=== PATIENT | male | born 1950 | race Two or more races ===

== ENCOUNTER 2018-03-18 22:54 | Inpatient (IN) | payer OTHER ==
[~2018-03-18] VITALS: Ht 175.3 cm; Wt 76.9 kg
--- NOTE | 2018-03-18 23:10 | NUR ---
67 YO male bb ra from home. patient is alert and oriented, C/O SOB x 2 days. on assessment patient is noted to have rhonchi all lobes, on room air patient is 85%, placed patient on 4 LPM 02 via NC. patient ds to er bed, skin warm and dry, resp even and unlabored. patient is noted to have swollen lower extremities. awaiting orders from provider, will continue to monitor
--- NOTE | 2018-03-18 23:19 | NUR ---
18G LEFT AC IV STARTED, BLOOD SAMPLE OBTAINED AND SENT TO LAB Addendum: 03/18/18 at 2319 by SKYLER LEFT WRIST IV STARTED
[2018-03-18 23:28] LABS: BASOPHILS % (AUTO) 0.4 % (0.0-2.0); EOSINOPHILS % (AUTO) 3.7 % (0.0-6.0); HEMATOCRIT 36 % (39-51); HEMOGLOBIN 11.8 g/dL (13.5-17.5); LYMPHOCYTES # (AUTO) 1.5 /CMM (0.8-4.8); LYMPHOCYTES % (AUTO) 15.5 % (20.0-44.0); MEAN CORPUSCULAR HEMOGLOBIN 27 PG (26.0-33.0); MEAN CORPUSCULAR HGB CONC 33 g/dl (31.0-36.0); MEAN CORPUSCULAR VOLUME 82 fL (80-96); MONOCYTES # (AUTO) 0.5 /CMM (0.1-1.30); NEUTROPHILS # (AUTO) 7.2 /CMM (1.8-8.9); NEUTROPHILS % (AUTO) 75.4 % (43.0-81.0); PLATELET COUNT (AUTO) 253 /CMM (150-450); RDW COEFFICIENT OF VARIATION 16.5 (11.5-15.0); WHITE BLOOD COUNT (AUTO) 9.6 K/uL (4.3-11.0)
[2018-03-18 23:43] LABS: CALCIUM, SERUM 8.6 mg/dL (8.5-10.1); CARBON DIOXIDE 29 mmol/L (21-32); CHLORIDE 100 mmol/L (98-107); CREATININE 1.1 mg/dL (0.6-1.3); GLUCOSE 136 mg/dL (74-106); POTASSIUM 3.5 mmol/L (3.5-5.1); SODIUM SERUM 137 mmol/L (136-145); UREA NITROGEN, BLOOD 26 mg/dL (7-18)
[2018-03-18 23:48] LABS: TROPONIN I < 0.017 ng/mL (0.00-0.056)
[2018-03-19 00:01] LABS: ALANINE AMINOTRANSFERASE 26 U/L (12-78); ALBUMIN 3.1 g/dL (3.4-5.0); ALKALINE PHOSPHATASE 60 U/L (46-116); ASPARTATE AMINOTRANSFERASE 8 U/L (15-37); B-TYPE NATRIURETIC PEPTIDE 9561 PG/ML (0-125); BILIRUBIN,DIRECT 0.1 mg/dL (0.0-0.2); BILIRUBIN,TOTAL 0.4 mg/dL (0.2-1.0); TOTAL PROTEIN, SERUM 6.8 g/dL (6.4-8.2)
[2018-03-19] MEDS ORDERED: FUROSEMIDE 40 MG/4 ML VIAL ONE (00:58)
[2018-03-19] MEDS ORDERED: FUROSEMIDE 40 MG/4 ML VIAL IV ONE (01:00)
--- NOTE | 2018-03-19 01:17 | NUR ---
patient trassported to tele bed without incident
[2018-03-19 01:20] VITALS: BP 113/83
--- NOTE | 2018-03-19 01:20 | NUR ---
PUTTY MAKERBUYER TOBACCO HEAD NOTES: Patient arrived in unit via gurney. Alert, oriented x 4. On 4L supplemental oxygen, saturating 99%. SOB on exertion. IV access on right wrist g#18, intact and patent. Patient able to ambulate to the bathroom. Oriented to call light. Skin assessment done. Bilateral lower extremity swelling, elevated with pillows. Picture in chart. Safety precautions in place. Bed in low, locked position. Will continue to monitor accordingly
[2018-03-19 01:30] VITALS: BP 113/83
[2018-03-19 01:30] LABS: INR 1.01 (0.87-1.13)
[2018-03-19] MEDS ORDERED: HYDROCODONE/APAP 5/325MG 1 EACH TABLET PO PRN (02:00)
--- NOTE | 2018-03-19 02:00 | NUR ---
HOLISTIC NUTRITIONIST NOTES: awake overnight monitor in place, Sinus rhythm 99 with BBB
[2018-03-19] MEDS ORDERED: INSULIN REGULAR, HUMAN 100 UNIT/ML 3 ML VIAL SQ PRN (02:30)
[2018-03-19] MEDS ORDERED: *INSULIN REGULAR(HUMULIN R)HUM 100 UNIT/ML VIAL SQ PRN (02:30)
[2018-03-19] MEDS ORDERED: DEXTROSE 50%-WATER 50 ML DISP.SYRIN IV PRN (02:30)
--- NOTE | 2018-03-19 02:30 | NUR ---
VENDOR ANALYST NOTES: Patient complaining of pain on left foot, norco given as ordered
[2018-03-19 04:00] VITALS: BP 97/60
--- NOTE | 2018-03-19 06:53 | NUR ---
FREELANCE WEB DESIGNER CLOSING NOTES: Patient sitting up in bed, alert, oriented x 4. Breathing even and unlabored. With supplemental O2 at 4L saturating 99%. Patient remains stable. Tele monitor in place reading sinus rhythm 89 with BBB. No complaints as of this time. Safety precautions in place. Call reyna within reach. Bed in low, licked position. Will endorse almas to morning shift RN
[2018-03-19] MEDS ORDERED: BLOOD SUGAR DIAGNOSTIC 1 EACH STRIP VI SCH (07:30)
[2018-03-19 07:36] LABS: BASOPHILS % (AUTO) 0.5 % (0.0-2.0); EOSINOPHILS % (AUTO) 2.8 % (0.0-6.0); HEMATOCRIT 39 % (39-51); HEMOGLOBIN 12.5 g/dL (13.5-17.5); LYMPHOCYTES # (AUTO) 1.5 /CMM (0.8-4.8); LYMPHOCYTES % (AUTO) 16.6 % (20.0-44.0); MEAN CORPUSCULAR HEMOGLOBIN 26 PG (26.0-33.0); MEAN CORPUSCULAR HGB CONC 32 g/dl (31.0-36.0); MEAN CORPUSCULAR VOLUME 82 fL (80-96); MONOCYTES # (AUTO) 0.5 /CMM (0.1-1.30); MONOCYTES % (AUTO) 5.9 % (2.0-12.0); NEUTROPHILS # (AUTO) 6.6 /CMM (1.8-8.9); NEUTROPHILS % (AUTO) 74.2 % (43.0-81.0); PLATELET COUNT (AUTO) 248 /CMM (150-450); RDW COEFFICIENT OF VARIATION 16.5 (11.5-15.0); RED BLOOD CELL COUNT(AUTO) 4.73 MIL/uL (4.5-6.0); WHITE BLOOD COUNT (AUTO) 8.9 K/uL (4.3-11.0)
[2018-03-19 07:43] LABS: CALCIUM, SERUM 8.3 mg/dL (8.5-10.1)
--- NOTE | 2018-03-19 07:48 | NUR ---
BURLAP ROLL COVERER NOTES PATIENT RECEIVED SLEEPING INSIDE ROOM, EASILY AROUSABLE THROUGH VERBAL AND TACTILE STIMULI. BREATHING EVEN AND UNLABORED. NO SOB OR ACUTE DISTRESS NOTED. NO CHANGES IN LOC NOTED. PATIENT DENIES ANY PAIN OR DISCOMFORT AT THIS TIME. PATIENT CALM AND RELAXED. IV INTACT AND PATENT, NO SWELLING OR BLEEDING NOTED ON SITE. WILL CONTINUE TO MONITOR. BED LOCKED AND IN LOW POSITION. BILATERAL UPPER SIDE RAILS UP AND LOCKED. CALL LIGHT WITHIN EASY REACH
[2018-03-19 08:00] LABS: THYROID STIMULATING HORMONE 0.6 uIU/mL (0.358-3.74)
[2018-03-19 08:50] VITALS: BP 106/61
[2018-03-19] MEDS ORDERED: LISINOPRIL (5MG) 5 MG TABLET PO SCH (09:00)
[2018-03-19] MEDS ORDERED: FUROSEMIDE 40 MG/4 ML VIAL IV SCH (09:00)
[2018-03-19] MEDS ORDERED: POTASSIUM CHLORIDE 20 MEQ TAB.PRT.SR PO SCH (09:00)
[2018-03-19] MEDS ORDERED: ZOLPIDEM TARTRATE 5 MG TABLET PO PRN (09:00)
[2018-03-19] MEDS ORDERED: ACETAMINOPHEN 325 MG TABLET PO PRN (09:00)
[2018-03-19] MEDS ORDERED: CARVEDILOL 12.5 MG TABLET PO SCH (09:00)
--- NOTE | 2018-03-19 10:59 | NUR ---
CENTER CUSTOMER SERVICE ASSOCIATE NOTES PATIENT SEEN AND EXAMINED BY DR. BOUCHER. PATIENT VERBALIZED THAT HE WANTS TO LEAVE AND GO HOME. DR. BOUCHER EXPLAINED TO PATIENT RISKS AND BENEFITS BUT PATIENT INSISTED THAT HE WANTS TO GO HOME, VERBALIZED HE WILL SIGN AMA FORM IF NEEDED SO HE CAN GO HOME. DR. BOUCHER WITH ORDER FOR VENOUS DOPPLER TO R/O DVT, PATIENT MADE AWARE BUT VERBALIZED THAT HE DOES NOT WANT TO WAIT, VERBALIZED THAT HE IS AMBULATORY AND HE THINKS THAT THERE IS NO PROBLEM WITH HIS LEGS. DR. BOUCHER MADE AWARE. DR. BOUCHER GAVE OK FOR PATIENT TO LEAVE HOSPITAL AGAINST MEDICAL ADVICE. AMA FORMED SIGNED BY PATIENT, ALL BELONGINGS COMPLETE ON DISCHARGE, NO REPORT OF MISSING INVENTORY. IV REMOVED WITH MINIMAL BLEEDING NOTED. PRESSURE DRESSING APPLIED TO SITE. PATIENT LEFT UNIT AT 1050, AMBULATORY, ACCOMPANIED BY NURSING STAFF TO OUTSIDE OF HOSPITAL. MD AND CHARGE NURSE AWARE OF DISCHARGE
[2018-03-20] MEDS ORDERED: LISI2.5T2 PO (15:45)
[2018-03-20] MEDS ORDERED: FERR325T23 PO (15:45)
[2018-03-20] MEDS ORDERED: DIGO125T PO (15:45)
[2018-03-20] MEDS ORDERED: IPRA12.9 IH (15:45)
[2018-03-20] MEDS ORDERED: ASCO500T9 PO (15:45)
[2018-03-20] MEDS ORDERED: TAMS-12 PO (15:45)
[2018-03-20] MEDS ORDERED: CARV6.252 PO (15:45)
[2018-03-20] MEDS ORDERED: ASPI-1169 PO (15:45)
[2018-03-20] MEDS ORDERED: BUME1TAB4 PO (15:45)
[2018-03-20] MEDS ORDERED: ALBU18HF2 IH (15:45)
[2018-03-20] MEDS ORDERED: SPIR25TA6 PO (15:45)
[2018-03-20] MEDS ORDERED: LEVA0.6320 IH (15:45)
[2018-03-20] MEDS ORDERED: PRED20TA PO (15:45)
[2018-03-20] MEDS ORDERED: CLOP75TA15 PO (15:45)
[2018-03-20] MEDS ORDERED: FINA5TAB11 PO (15:45)
[2018-03-20] MEDS ORDERED: ATOR40TA PO (15:45)
[2018-03-20] MEDS ORDERED: FLUT1BLS IH (15:45)
[2018-03-20] MEDS ORDERED: PANT40TA2 PO (15:45)
[2018-03-20] MEDS ORDERED: TRAM50TA2 PO (15:45)
[2018-03-20] MEDS ORDERED: NICO-676 TD (15:46)
== END 2018-03-19 11:00 | disposition left against medical advice (07) | DRG 194 ==
LOC: ER 22:55 → TELE 03-19 01:33
PROVIDERS: ADMIT Internal Medicine; ATTEND Internal Medicine
DX: I11.0 Hypertensive heart disease with heart failure (principal); J90 Pleural effusion, not elsewhere classified; Z95.1 Presence of aortocoronary bypass graft; E11.9 Type 2 diabetes mellitus without complications; I50.23 Acute on chronic systolic (congestive) heart failure; I25.5 Ischemic cardiomyopathy; I25.10 Atherosclerotic heart disease of native coronary artery without angina pectoris; Z91.19 Patient's noncompliance with other medical treatment and regimen; E78.5 Hyperlipidemia, unspecified; F17.210 Nicotine dependence, cigarettes, uncomplicated; Z79.4 Long term (current) use of insulin
CPT/HCPCS: 36415; 71045-TC; 80048-TC; 80061-TC; 80076-TC; 82962-TC; 83605-TC; 83880; 84443-TC; 84484-TC; 85025-TC; 85730-TC; 87040-TC; 87081-TC; A4606; J1815; J1940; Z7610

== ENCOUNTER 2018-03-20 13:00 | Inpatient (IN) | payer OTHER ==
[~2018-03-20] VITALS: Ht 177.8 cm; Wt 76.2 kg
--- NOTE | 2018-03-20 13:10 | NUR ---
PT BIB DAUGHTER TO ER BED 09 C/O WORSENING SOB AND ON AND OFF CP SINCE LAST NIGHT. PT IS ON O2@3L/MIN. DENIES CHEST PAIN AT THIS TIME. GOWNED AND PLACED ON MONITOR. AWAITING MD GARCIA.
--- NOTE | 2018-03-20 13:15 | NUR ---
DR BUTLER AT BEDSIDE FOR EVAL.
--- NOTE | 2018-03-20 13:20 | NUR ---
IV LINE STARTED BLOOD DRAWN AND SENT TO LAB.
[2018-03-20 13:29] LABS: BASOPHILS # (AUTO) 0.1 /CMM (0.0-0.2); BASOPHILS % (AUTO) 0.6 % (0.0-2.0); EOSINOPHILS % (AUTO) 1.4 % (0.0-6.0); HEMATOCRIT 37 % (39-51); HEMOGLOBIN 12.5 g/dL (13.5-17.5); LYMPHOCYTES # (AUTO) 0.9 /CMM (0.8-4.8); LYMPHOCYTES % (AUTO) 9.1 % (20.0-44.0); MEAN CORPUSCULAR HEMOGLOBIN 26 PG (26.0-33.0); MEAN CORPUSCULAR HGB CONC 33 g/dl (31.0-36.0); MEAN CORPUSCULAR VOLUME 78 fL (80-96); MONOCYTES # (AUTO) 0.4 /CMM (0.1-1.30); MONOCYTES % (AUTO) 3.7 % (2.0-12.0); NEUTROPHILS # (AUTO) 8.3 /CMM (1.8-8.9); NEUTROPHILS % (AUTO) 85.2 % (43.0-81.0); PLATELET COUNT (AUTO) 265 /CMM (150-450); RDW COEFFICIENT OF VARIATION 14.9 (11.5-15.0); RED BLOOD CELL COUNT(AUTO) 4.77 MIL/uL (4.5-6.0); WHITE BLOOD COUNT (AUTO) 9.8 K/uL (4.3-11.0)
[2018-03-20 13:40] LABS: CALCIUM, SERUM 8.7 mg/dL (8.5-10.1); POTASSIUM 3.2 mmol/L (3.5-5.1)
[2018-03-20 13:43] LABS: INR 1.06 (0.85-1.15)
[2018-03-20 13:47] LABS: TROPONIN I 0.026 ng/mL (0.00-0.056)
[2018-03-20 13:52] LABS: ALBUMIN 3.2 g/dL (3.4-5.0); BILIRUBIN,DIRECT 0.2 mg/dL (0.0-0.2); BILIRUBIN,TOTAL 0.7 mg/dL (0.2-1.0); TOTAL PROTEIN, SERUM 7.2 g/dL (6.4-8.2)
--- NOTE | 2018-03-20 14:36 | NUR ---
CALLED [employer] SLIP COVER ESTIMATOR WAS PAGED.
[2018-03-20] MEDS ORDERED: POTASSIUM CHLORIDE 20 MEQ TAB.PRT.SR PO ONE ×2 (15:17→15:30)
[2018-03-20] MEDS ORDERED: FUROSEMIDE 40 MG/4 ML VIAL ONE (15:17)
[2018-03-20] MEDS ORDERED: FUROSEMIDE 40 MG/4 ML VIAL IV ONE (15:30)
[2018-03-20] MEDS ORDERED: FERR325T23 PO (15:45)
[2018-03-20] MEDS ORDERED: ASCO500T9 PO (15:45)
[2018-03-20] MEDS ORDERED: IPRA12.9 IH (15:45)
[2018-03-20] MEDS ORDERED: PANT40TA2 PO (15:45)
[2018-03-20] MEDS ORDERED: CLOP75TA15 PO (15:45)
[2018-03-20] MEDS ORDERED: DIGO125T PO (15:45)
[2018-03-20] MEDS ORDERED: PRED20TA PO (15:45)
[2018-03-20] MEDS ORDERED: FINA5TAB11 PO (15:45)
[2018-03-20] MEDS ORDERED: ATOR40TA PO (15:45)
[2018-03-20] MEDS ORDERED: BUME1TAB4 PO (15:45)
[2018-03-20] MEDS ORDERED: LEVA0.6320 IH (15:45)
[2018-03-20] MEDS ORDERED: SPIR25TA6 PO (15:45)
[2018-03-20] MEDS ORDERED: CARV6.252 PO (15:45)
[2018-03-20] MEDS ORDERED: LISI2.5T2 PO (15:45)
[2018-03-20] MEDS ORDERED: FLUT1BLS IH (15:45)
[2018-03-20] MEDS ORDERED: ASPI-1169 PO (15:45)
[2018-03-20] MEDS ORDERED: ALBU18HF2 IH (15:45)
[2018-03-20] MEDS ORDERED: TAMS-12 PO (15:45)
[2018-03-20] MEDS ORDERED: TRAM50TA2 PO (15:45)
[2018-03-20] MEDS ORDERED: NICO-676 TD (15:46)
--- NOTE | 2018-03-20 15:56 | NUR ---
MS/panel instrument repairer New admission from emergency room with CHF. Fully admitted, awaiting orders from Dr Forman. Patient refused for full body check, stated "my skin is okay, I have nothing".
[2018-03-20 16:14] VITALS: BP 123/76
[2018-03-20 16:43] VITALS: BP 123/76
--- NOTE | 2018-03-20 16:47 | NUR ---
MS/RN Orders Admitting orders given by Dr Forman.
--- NOTE | 2018-03-20 18:22 | NUR ---
MS/RN End note Patient remains in stable condition, saturation on 4l 96%. All needs attended, patient reminded that we need to record how much urine he is voiding and to use urinal, stated understanding. Will endorse to cage shift manager. Patient continues to refuse for full skin assessment.
[2018-03-20] MEDS ORDERED: ALPRAZOLAM 0.25 MG TABLET PO PRN (19:00)
--- NOTE | 2018-03-20 19:18 | NUR ---
FORENSIC MEDICAL EXAMINER OPENING NOTES: RECEIVED PT AND IS ON 5LPM VIA NC. PT APPEARS TO BE ANXIOUS. PT IS AWAKE AND IS A/OX4. PT IS ON TELE BOX AND READING SHOWS SINUS WITH BBB 96. IV ON R FOREARM #18G AND IS PATENT AND INTACT. CURRENTLY H/L. CALL LIGHT WITHIN PT'S REACH. BED KEPT IN LOW, LOCKED POSITION, AND SIDE RAILS X 2UP. PT IN SEMI-HAHN'S POSITION. WILL CONTINUE TO MONITOR PT.
[2018-03-20 19:25] VITALS: BP 120/67
[2018-03-20] MEDS: LORAZEPAM 1 MG TABLET PO PRN (19:26)
--- NOTE | 2018-03-20 19:28 | NUR ---
PATIENT FINANCIAL SERVICES MANAGER NOTES: PT ANXIOUS. HR ELEVATED AT 103. PT ADMINISTERED ATIVAN 1MG PO. WILL CONTINUE TO MONITOR. EXPLAINED TO HIM THAT HE HAS SCHEDULED BREATHING TX AND THAT RESPIRATORY THERAPIST SHOULD BE COMING UP SOON.
[2018-03-20] MEDS ORDERED: TRAMADOL HCL 50 MG TABLET PO PRN (19:30)
[2018-03-20] MEDS ORDERED: ALBUTEROL FS 2.5 MG/3 ML VIAL.NEB NEB PRN (19:30)
--- NOTE | 2018-03-20 19:34 | NUR ---
GREENSKEEPER SUPERVISOR NOTES: INFORMED RT ABOUT PT BEING ANXIOUS. HE WOULD LIKE HIS BREATHING TX LEWIS. RT JUANITA AWARE.
--- NOTE | 2018-03-20 19:38 | NUR ---
BRAZER RESISTANCE NOTES: RT AT BEDSIDE.
[2018-03-20] MEDS: CARVEDILOL 6.25 MG TABLET PO SCH (19:57)
[2018-03-20 20:09] VITALS: BP 120/67
[2018-03-20 20:20] VITALS: BP 115/74
[2018-03-20] MEDS: FUROSEMIDE 40 MG/4 ML VIAL IV SCH (20:25)
--- NOTE | 2018-03-20 20:30 | NUR ---
ENGINEERING TECHNICAL ANALYST NOTES: INFORMED PT TO USE URINAL SO WE CAN MEASURE HIS OUTPUT. PT INSISTS THAT HE GOES TO BATHROOM.
[2018-03-20] MEDS: LEVALBUTEROL HCL NEB 1.25 MG/0.5 ML VIAL.NEB NEB SCH (23:53)
[2018-03-20] MEDS: IPRATROPIUM NEB FS 0.5 MG/2.5 ML AMPUL.NEB NEB SCH (23:54)
[2018-03-21 00:06] VITALS: BP 102/68
[2018-03-21] MEDS: LEVALBUTEROL HCL NEB 1.25 MG/0.5 ML VIAL.NEB NEB SCH ×3 (02:21→13:38)
[2018-03-21] MEDS: IPRATROPIUM NEB FS 0.5 MG/2.5 ML AMPUL.NEB NEB SCH ×4 (02:21→15:49)
[2018-03-21 04:00] VITALS: BP 117/77
[2018-03-21] MEDS: LORAZEPAM 1 MG TABLET PO PRN (04:19)
--- NOTE | 2018-03-21 04:21 | NUR ---
SEO MANAGER NOTES: PT APPEARS TO BE ANXIOUS. OFFERED PT ATIVAN. PT WAS ADMINISTERED ATIVAN 1MG PO. WILL CONTINUE TO MONITOR. RT AT BEDSIDE WELL.
--- NOTE | 2018-03-21 06:10 | NUR ---
ELECTRON MICROSCOPIST NOTES: SPOKE WITH DR. BOUCHER AND INFORMED HIM THAT PT HAS HX OF DIABETES. GOT ORDER FOR ACCUCHECK ACHS AND MILD SLIDING SCALE INSULIN.
[2018-03-21] MEDS: BLOOD SUGAR DIAGNOSTIC 1 EACH STRIP IN SCH ×3 (06:14→18:19)
[2018-03-21] MEDS ORDERED: DEXTROSE 50%-WATER 50 ML DISP.SYRIN IV PRN (06:30)
[2018-03-21] MEDS: INSULIN REGULAR, HUMAN 100 UNIT/ML 3 ML VIAL SQ PRN ×3 (06:35→17:04)
--- NOTE | 2018-03-21 06:41 | NUR ---
TALKBACK HOST NOTES: BLOOD SUGAR WAS 168. 3 UNITS OF INSULIN WAS ADMINISTERED. SNACK WAS PROVIDED AT BEDSIDE. WILL CONTINUE TO MONITOR.
--- NOTE | 2018-03-21 06:49 | NUR ---
OFFSET PRINTING OPERATOR CLOSING NOTES: ALL NEEDS WERE ATTENDED AND ANTICIPATED FOR. PT ON 3LPM VIA NC. PT HAS TO BE REORIENTED MULTIPLE TIMES. PT IS A/OX2-3 AND IS FORGETFUL. PT ON TELE BOX AND READING SHOWS SR 96 WITH BBBS. PT HAS R FOREARM #18G AND IS PATENT AND INTACT. CURRENTLY H/L. PT IN SEMI-HAHN'S POSITION, CALL LIGHT WITHIN PT'S REACH. BED KEPT IN LOW, LOCKED POSITION, AND SIDE RAILS X 2UP. WILL ENDORSE TO AM NURSE FOR DEEPALI.
[2018-03-21 06:59] LABS: BASOPHILS % (AUTO) 0.6 % (0.0-2.0); EOSINOPHILS % (AUTO) 3.1 % (0.0-6.0); HEMATOCRIT 39 % (39-51); HEMOGLOBIN 12.4 g/dL (13.5-17.5); LYMPHOCYTES # (AUTO) 1.3 /CMM (0.8-4.8); LYMPHOCYTES % (AUTO) 16.4 % (20.0-44.0); MEAN CORPUSCULAR HEMOGLOBIN 26 PG (26.0-33.0); MEAN CORPUSCULAR HGB CONC 32 g/dl (31.0-36.0); MEAN CORPUSCULAR VOLUME 82 fL (80-96); MONOCYTES # (AUTO) 0.5 /CMM (0.1-1.30); MONOCYTES % (AUTO) 5.5 % (2.0-12.0); NEUTROPHILS # (AUTO) 6.1 /CMM (1.8-8.9); NEUTROPHILS % (AUTO) 74.4 % (43.0-81.0); PLATELET COUNT (AUTO) 248 /CMM (150-450); RDW COEFFICIENT OF VARIATION 16.7 (11.5-15.0); RED BLOOD CELL COUNT(AUTO) 4.72 MIL/uL (4.5-6.0); WHITE BLOOD COUNT (AUTO) 8.2 K/uL (4.3-11.0)
[2018-03-21 07:24] LABS: CALCIUM, SERUM 8.5 mg/dL (8.5-10.1); CREATININE 1.1 mg/dL (0.6-1.3); POTASSIUM 4.1 mmol/L (3.5-5.1)
[2018-03-21] MEDS ORDERED: PANTOPRAZOLE 40 MG TABLET.DR PO SCH (07:30)
--- NOTE | 2018-03-21 07:30 | NUR ---
RN MS NOTES PT IN BED, AWAKE, ALERT AND ORIENTED, DENIES PAIN, NOT IN DISTRESS, KEPT HOB ELEVATED, CALL LIGHT WITHIN REACH, NEEDS ATTENDED.
[2018-03-21 08:00] VITALS: BP 94/72
[2018-03-21] MEDS ORDERED: NICOTINE PATCH (14MG) 14 MG PATCH.TD24 TD SCH (09:00)
[2018-03-21] MEDS: FUROSEMIDE 40 MG/4 ML VIAL IV SCH ×2 (09:00→16:52)
[2018-03-21] MEDS ORDERED: TAMSULOSIN 0.4 MG CAP.SR.24H PO SCH (09:00)
[2018-03-21] MEDS ORDERED: FLUTICASONE/VILANTEROL 1 EACH BLST.W.DEV IH SCH (09:00)
[2018-03-21] MEDS ORDERED: SPIRONOLACTONE 25 MG TABLET PO SCH (09:00)
[2018-03-21] MEDS ORDERED: LISINOPRIL (5MG) 5 MG TABLET PO SCH (09:00)
[2018-03-21] MEDS ORDERED: CLOPIDOGREL BISULFATE 75 MG TABLET PO SCH (09:00)
[2018-03-21] MEDS ORDERED: FINASTERIDE (5 MG) 5 MG TABLET PO SCH (09:00)
[2018-03-21] MEDS: CARVEDILOL 6.25 MG TABLET PO SCH ×2 (09:00→16:53)
[2018-03-21] MEDS ORDERED: ASPIRIN 81 MG TAB.CHEW PO SCH (09:00)
[2018-03-21] MEDS ORDERED: DIGOXIN 0.125 MG TABLET PO SCH (09:00)
[2018-03-21] MEDS ORDERED: LEVALBUTEROL HCL NEB 1.25 MG/0.5 ML VIAL.NEB NEB SCH (11:30)
[2018-03-21] MEDS ORDERED: LEVOFLOXACIN (500MG) 500 MG TABLET PO SCH (12:00)
[2018-03-21] MEDS: methylPREDNISolone SOD SUCC 40 MG/ML VIAL IV SCH ×2 (12:44→16:52)
--- NOTE | 2018-03-21 13:00 | NUR ---
RN MS NOTES PT IN BED, AWAKE, ALERT AND ORIENTED, NO COMPLAINT OF PAIN, NOT IN DISTRESS, STILL WITH WHEEZING, DR. BOUCHER INFORMED AND SEEN PT, NEW ORDERS GIVEN AND CARRIED OUT, PT WITH GOOD APPETITE, CALL LIGHT WITHIN REACH.
[2018-03-21 16:53] VITALS: BP 110/74
--- NOTE | 2018-03-21 18:40 | NUR ---
RN MS NOTES PT IN BED, AWAKE, ALERT AND ORIENTED, NO COMPLAINT OF PAIN OR SOB, PT FOR TRANSFER TO [facility] [place] FOR CONTINUITY OF CARE ORDERED BY DR. BOUCHER, PT INFORMED, VERBALIZED UNDERSTANDING, DISCHARGE AND MEDICATION INSTRUCTIONS PROVIDED TO PT, VERBALIZED UNDERSTANDING, REPORT GIVEN TO MAURA SCHULTE OF [facility], BELONGINGS ACCOUNTED FOR, PT SIGNED ALL DISCHARGE PAPERS, PICKED UP BY 2 AMBULANCE PERSONNEL, LEFT VIA GUERNEY IN STABLE CONDITION.
== END 2018-03-21 18:10 | disposition short-term general hospital (02) | DRG 194 ==
LOC: ER 13:03 → TELE 15:41 → MED 03-21 08:39
PROVIDERS: ADMIT Nurse Practitioner Acute Care; ATTEND Nurse Practitioner Acute Care
DX: I11.0 Hypertensive heart disease with heart failure (principal); Z95.1 Presence of aortocoronary bypass graft; J44.1 Chronic obstructive pulmonary disease with (acute) exacerbation; Z95.2 Presence of prosthetic heart valve; I25.10 Atherosclerotic heart disease of native coronary artery without angina pectoris; I25.5 Ischemic cardiomyopathy; I50.23 Acute on chronic systolic (congestive) heart failure; F17.210 Nicotine dependence, cigarettes, uncomplicated; E78.5 Hyperlipidemia, unspecified; E11.9 Type 2 diabetes mellitus without complications; Z91.19 Patient's noncompliance with other medical treatment and regimen
CPT/HCPCS: 36415; 71045-TC; 80048-TC; 80076-TC; 82962-TC; 83880; 84484-TC; 85025-TC; 85730-TC; 87081-TC; 93307-TC; 93970-TC; A4606; J1815; J1940; J2920; Z7610